=== PATIENT | female | born 1990 | race Caucasian/White ===

== ENCOUNTER 2021-05-02 16:15 | Outpatient (RCR) | payer OTHER, SELFPAY ==
--- NOTE | ~2021-05-02 | US_ITS ---
US OB limited w BPP DATE: 05/02/2021 17:37 INDICATION: decelerations in office TECHNIQUE: Real-time imaging and Doppler analysis COMPARISON: None FINDINGS: Live jane intrauterine gestation, fetus in vertex presentation, longitudinal lie with heart rate of 121 bpm. Anterior placenta. Amniotic fluid index measures 10.4 cm. BIOPHYSICAL PROFILE reported by library information technician: breathin out of 2 movement: 2 out of 2 tone: 2 out of 2 Amniotic fluid pocket: 2 out of 2 Total score: 8 out of 8 IMPRESSION: Normal biophysical profile score of 8 out of 8 Amniotic fluid index measures 10.4 cm Reviewed, dictated and finalized at Location A. Reviewed, dictated and finalized at location A. WHINA KURA KAUP[place]A MAORI
[2021-05-02 17:47] VITALS: BP 129/80; PULSE 89
== END 2021-06-10 13:23 | disposition home or self-care (01) ==
LOC: ANHOBOP 16:15
PROVIDERS: PCP Family Medicine; Visit Provider Obstetrics & Gynecology Gynecology
DX: O36.8330 Maternal care for abnormalities of the fetal heart rate or rhythm, third trimester, not applicable or unspecified (principal); Z3A.34 34 weeks gestation of pregnancy
CPT/HCPCS: 59025; 76815; 76819

== ENCOUNTER 2021-05-28 16:01 | Inpatient (IN) | payer OTHER, SELFPAY ==
[2021-05-28] VITALS (39 sets, daily range): BP systolic 104–149; BP diastolic 58–86; PULSE 65–109; TEMP 36.3–36.8; O2SAT 96–100; BMI 40.2
--- NOTE | 2021-05-28 16:45 | LDADM ---
This patient, Teresa Reed, was admitted to Labor/Delivery/Recovery 105 on 05/28/21 at 16:01. Plans for labor, pain management and were discussed with patient. Patient/family oriented to hospital policies and general routines including ID bracelet, bed and alarms, visiting hours, pain management, procedures, bathroom and other care routines, personal items, smoking policy, room service/diet and guest tray routines, infant security routines, and visiting hours. Patient/Family are encouraged to report perceived risks to care and to ask questions if they do not understand what they are told or what they should do. See OBIX for further documentation.
[2021-05-28 16:49] LABS: Basophils Percent Auto 0.4 % (0.2-1.2); Eosinophils Absolute Auto 0.1 K/mm3 (0-0.3); Eosinophils Percent Auto 1.1 % (0-4.4); Hematocrit 35.1 % (37.0-47.0); Hemoglobin 11.8 g/dL (12.0-15.0); Immature Granulocyte Absolute 0.11 K/mm3 (0.00-0.031); Immature Granulocyte Percent A 1.2 % (0-0.5); Lymphocytes Absolute Auto 1.57 K/mm3 (0.9-3.2); Lymphocytes Percent Auto 17.3 % (18.3-44.2); Mean Corpuscular HGB Conc 33.6 g/dl (32-36); Mean Corpuscular Hemoglobin 31.4 pg (26-34); Mean Corpuscular Volume 93.4 fl (80-100); Mean Platelet Volume 9.6 fl (7.4-10.4); Monocytes Absolute Auto 0.7 K/mm3 (0.1-0.6); Monocytes Percent Auto 7.4 % (2.6-8.5); Neutrophils Absolute Auto 6.6 K/mm3 (1.3-6.7); Neutrophils Percent Auto 72.6 % (45.5-73.1); Platelet Count Result 221 k/mm3 (150-375); Red Blood Count 3.76 M/mm3 (4.2-5.4); Red Cell Distribution Width 13.2 % (11.5-14.5); White Blood Count 9.1 K/mm3 (4.5-10.0)
--- NOTE | 2021-05-28 17:40 | WPDANESEPP ---
Anes - Eval Pre Procedure Procedure: labor epidural Date/Time: 05/28/21 17:40 Pre Op Diagnosis: SROM Patient Data Age: 30 Gender: F Height: 1.6 m Weight: 103 kg Last Vital Signs Temp 36.3 C L 05/28/21 17:20 Pulse 82 05/28/21 16:50 BP 129/72 05/28/21 16:50 Allergies Allergy/AdvReac Type Severity Reaction Status Date / Time No Known Allergies Allergy Verified 05/08/21 12:25 Home Medications Medication Instructions Recorded Confirmed Type PNV cmb#95-ferrous fumarate-FA 1 tablet PO DAILY 05/08/21 05/28/21 History [] aspirin 81 mg PO DAILY 05/08/21 05/08/21 History ferrous sulfate [Iron (ferrous 325 mg PO DAILY 05/08/21 05/08/21 History sulfate)] Laboratory Tests 05/28/21 05/28/21 05/28/21 16:43 16:43 16:43 WBC 9.1 K/mm3 K/mm3 (4.5-10.0) RBC 3.76 M/mm3 L M/mm3 (4.2-5.4) Hgb 11.8 g/dL L g/dL (12.0-15.0) Hct 35.1 % L % (37.0-47.0) MCV 93.4 fl fl (80-100) MCH 31.4 pg pg (26-34) MCHC 33.6 g/dl g/dl (32-36) RDW 13.2 % % (11.5-14.5) Plt Count 221 k/mm3 k/mm3 (150-375) MPV 9.6 fl fl (7.4-10.4) Immature Gran % (Auto) 1.2 % H % (0-0.5) Neut % (Auto) 72.6 % % (45.5-73.1) Lymph % (Auto) 17.3 % L % (18.3-44.2) [place]y % (Auto) 7.4 % % (2.6-8.5) Eos % (Auto) 1.1 % % (0-4.4) Baso % (Auto) 0.4 % % (0.2-1.2) Lymph # (Auto) 1.57 K/mm3 K/mm3 (0.9-3.2) Ripley # (Auto) 0.7 K/mm3 H K/mm3 (0.1-0.6) Eos # (Auto) 0.1 K/mm3 K/mm3 (0-0.3) Baso # (Auto) 0.0 K/mm3 K/mm3 (0.0-0.1) Abs Immat Gran (auto) 0.11 K/mm3 H K/mm3 (0.00-0.031) Absolute Neuts (auto) 6.6 K/mm3 K/mm3 (1.3-6.7) Absolute Nucleated RBC 0.0 K/mm3 K/mm3 (0.0-0.012) Nucleated RBC % 0.0 % % (0.0-0.2) RPR Pending Blood Type O Positive Antibody Screen Negative Patient hx anesthesia problems: none Family hx anesthesia problems: none Results Review: All pre-operative results and documents have been reviewed as part of the pre-operative evaluation. [facility], [facility] Past Medical History Medical History (Updated 05/28/21 @ 17:41 by Reema Mac CRNA) Anxiety and depression Morbid obesity Family History Family History Other No pertinent family history Social History Social History Smoking status: Never smoker Substance use: never Spiritual care concerns: No Exam Day of Procedure 05/28/21 17:40 Patient weight: morbidly obese Heart: regular rate and rhythm Lungs: normal air movement Airway: Mallampati scale class II Neurological: alert and oriented
[2021-05-28] MEDS: LACTATED RINGERS 1,000 ML 125 ML IV CONT ×2 (20:53→22:39)
[2021-05-28] MEDS: OXYTOCIN 30 UNITS/NS 500 ML 30 UNITS/500 ML BAG 6 UNITS IV CONT (20:53)
[2021-05-29] VITALS (113 sets, daily range): BP systolic 83–152; BP diastolic 48–95; PULSE 64–158; RESP 16–18; TEMP 36.5–37.3; O2SAT 95–100
--- NOTE | 2021-05-29 06:34 | WPDOBADMIT ---
Obstetrics - Admit Note Admission Note: record reviewed. No pertinent additions to the history and/or any subsequent changes in the physical findings that are not consistent with the expected course of the were found. Additions to the history and/or subsequent changes in the physical findings follow. None.Here in labor. C/P on my arrival
--- NOTE | 2021-05-29 06:35 | P.PCNOB_ITS ---
OB - Delivery Note Procedure Delivery date: 05/29/21 Procedure: Events: Other (COVID + in ) Induction method: None Delivery monitor: None Route of delivery: Laceration Description: Vaginal Delivery repair: vicryl (3-0 ) Specimen: No Quantitative Blood Loss (ml): 400 Anesthesia type: Epidural Disposition: Floor [place] Baby Date of : 05/29/21 Weeks of gestation at delivery: 38 Weight (pounds): 8 Weight (ounces): 2 presentation: vertex position: Right Occiput Anterior Placenta delivery description: Spontaneous Cord Vessel Description: 3 Vessels, Nuchal Cord and True Knot score one minute: 8 score five minutes: 9
--- NOTE | 2021-05-29 06:37 | PM.OBDSVD ---
DS: Admitting Diagnosis Discharge Date 05/30/21 Admitting Diagnosis IUP 38 05/08 in labor DS: Discharge Diagnosis Discharge Diagnosis (1) (normal spontaneous vaginal delivery): Code(s): O80 - Encounter for full-term uncomplicated delivery Status: Acute OB - DS: Summary OB Procedures : NST and Ultrasound OB Procedures Intrapartum: Spontaneous Vag Delivery OB Procedures: : None Peripartum Data Infant Delivery Method: Natural Vaginal Laceration Description: Vaginal - 2nd Degree complications: none Status at Discharge Functional status at discharge: independent ambulation Overall status at discharge: patient is progressing back to baseline Time Spent with Patient Time attestation: Total time spent providing and/or coordinating discharge services: DS: Data Data Completed and Pending Labs on day of discharge: Labs from last 24 hours 05/28/21 05/28/21 05/28/21 16:43 16:43 16:43 WBC 9.1 RBC 3.76 L Hgb 11.8 L Hct 35.1 L MCV 93.4 MCH 31.4 MCHC 33.6 RDW 13.2 Plt Count 221 MPV 9.6 Immature Gran % (Auto) 1.2 H Neut % (Auto) 72.6 Lymph % (Auto) 17.3 L Vance % (Auto) 7.4 Eos % (Auto) 1.1 Baso % (Auto) 0.4 Lymph # (Auto) 1.57 Vance # (Auto) 0.7 H Eos # (Auto) 0.1 Baso # (Auto) 0.0 Abs Immat Gran (auto) 0.11 H Absolute Neuts (auto) 6.6 Absolute Nucleated RBC 0.0 Nucleated RBC % 0.0 RPR Pending Blood Type O Positive Antibody Screen Negative Discharge Plan Discharge Attending physician on discharge: Camille Lerma Discharging Clinician: Camille Lerma Anticipated Discharge Date/Time: 05/30/21 07:55 Patient Disposition: Home, Self-Care Activity: may shower and pelvic rest Diet: regular Patient Instructions: Antibiotic Form Stand Alone Forms: General Discharge Information Follow-up/Referrals: Camille Lerma MD [Physician] - 6 Weeks Discharge Medications: Continued PNV cmb#95-ferrous fumarate-FA [] 28 mg iron- 800 mcg Tablet 1 tablet PO DAILY RF: 0 Discontinued aspirin 81 mg Tablet 81 mg PO DAILY RF: 0 ferrous sulfate [Iron (ferrous sulfate)] 325 mg (65 mg iron) Tablet 325 mg PO DAILY RF: 0 Date of admission: 05/28/21 16:01 Primary Care Provider: Nate,Ben Hines Admitting Provider: Camille Lerma Attending physician on admission: Camille Lerma Condition: Stable
[2021-05-29] MEDS: OXYTOCIN 30 UNITS/NS 500 ML 30 UNITS/500 ML BAG 125 UNITS IV CONT (07:00)
--- NOTE | 2021-05-29 09:00 | OBPPTRN ---
Patient transferred to post room # 285 via wheelchair. Support person present. Oriented to unit, room, information board, rooming in, admission packet and security measures. Patient verbalizes understanding. Baby and FOB up to the room with patient
[2021-05-29] MEDS: ONDANSETRON INJ 4 MG/2 ML VIAL IV PUSH (09:53)
[2021-05-29] MEDS: IBUPROFEN 600 MG TABLET PO ×2 (10:58→17:03)
[2021-05-29 13:00] LABS: Rapid Plasma Reagin Non-Reactive (NonReactive)
--- NOTE | 2021-05-29 14:33 | PC.NURSE ---
1115 -1200 Reported to RN this morning that mother was well independently. Introductions were made and consulted with patient to assess needs related to . Mother led conversation with her experience with feeding baby so far. Mother works well with her . Reviewed good handwashing when working with infant, breast, nipples and how to protect the nipples with a deep latch. Encouraged understanding the benefits of skin to skin, responding to feeding cues, frequencies of feeding 8-12 times in 24 hours (approximately 2-3 hours), duration of feedings, milk production, intake/output feeding sheet and signs of adequate intake. Discussed stimulating infant with skin to skin, hand expressing colostrum, touch and talking to to encourage eating at the breast. Reviewed positioning and alignment, supporting breast, off-centered (asymmetrical latch) and leading with the chin with big open wide gape. Infant latched optimally to the right breast in cross cradle position for 10 min. Infant detached. Nipple was not misshaped. Infant latched optimally to the left breast with football positioning with no discomfort to mother. Education given to mother of how to visualize suck/swallow ratios and drinking at the breast. was able to maintain latch without discomfort to mother. Nipple care reviewed with optimal latching, good positioning, comfort and healing with warm, wet washcloth to rinse breast and leave to air-dry, colostrum may be left on nipples to dry but have clean hands when touching the nipple/breast. Resources used to facilitate learning were used from the visual handout/ tool/mom and baby guide. Mother voiced understanding responding to feeding cues, may need to stimulate approximately 2-3 hours from the start of the last feeding with skin to skin, massage and hand expressed colostrum, and calling for assistance if the infant does not latch or there is discomfort . [id number] RN assisted mother with infant to left breast in cross cradle position. Reported to primary RN.
[2021-05-29] MEDS: DOCUSATE SODIUM 100 MG CAPSULE PO (17:03)
[2021-05-30 00:30] VITALS: BP 120/85; PULSE 110; RESP 20; TEMP 37.6; O2SAT 98
[2021-05-30 04:30] VITALS: BP 117/63; PULSE 102; RESP 18; TEMP 36.4; O2SAT 95
[2021-05-30] MEDS: IBUPROFEN 600 MG TABLET PO (04:53)
[2021-05-30 06:09] LABS: Hematocrit 31.3 % (37.0-47.0); Hemoglobin 10.4 g/dL (12.0-15.0)
[2021-05-30 07:50] VITALS: BP 113/64; PULSE 94; RESP 16; TEMP 36.7; O2SAT 99
--- NOTE | 2021-05-30 07:54 | PM.OBPNVD ---
OB - PN: Subj Subjective Date/time seen: 05/30/21 07:54 Patient comments: no complaints and pain well controlled baby status: doing well OB - PN: Obj Data Labs CBC & Chem 7: 05/30/21 05:42 Labs: Laboratory Results - last 24 hr 05/28/21 05/30/21 16:43 05:42 Hgb 10.4 L Hct 31.3 L RPR Non-reactive OB - PN A/P Plan day: 1 Plan: routine care, discharge home, follow up 6 weeks and other (unsure bc) Time Spent With Patient Time: Total time spent is greater than 50% in coordination of care (as documented) at patient's floor/unit and/or counseling patient: Exam : Bimanual exam- vagina & uterus: other (Uterus firm, nt @U)
--- NOTE | 2021-05-30 09:56 | WPDANLDPN2 ---
Anes-Prog Note L&D Date/Time: 05/30/21 09:56 Comfortable throughout: labor and delivery Neuraxial method: epidural Epidural/Spinal procedure site: tender (back pain rated 5) Neuro status: Neuro function grossly intact. Cardiovascular status: normal Respiratory status: normal Airway patency: baseline Mental status: baseline Post-Op hydration status: normal Vital Signs: Last Vital Signs Temp 98.1 F 05/30/21 07:50 Pulse 94 05/30/21 07:50 Resp 16 05/30/21 07:50 BP 113/64 05/30/21 07:50 Pulse Ox 99 05/30/21 07:50 Pain score (VAS): 5 I/O: Intake & Output 05/29/21 05/30/21 05/30/21 23:59 07:59 15:59 Intake Total 480 Balance 480 Post-procedural complaints: none Patient feedback: Patient satisfied with anesthetic care.
--- NOTE | 2021-05-30 11:58 | PC.NURSE ---
Patient viewed the discharge video Mother & Baby Care, The First Two Weeks . Patient was given the opportunity and encouraged to ask questions. Patient verbalized understanding of information shared and has been given the mother/baby guide for home reference.
--- NOTE | 2021-05-30 16:56 | PC.NURSE ---
[id number] Introductions were made and mother led the conversation with regards to her experience feeding her baby. Reminded parents to use good handwashing to prevent infection. has had appropriate feedings in the past 24 hours and meets the outcomes for weight, output and jaundice. Mother states she feels confident to continue effectively her infant at home. with an optimal latch without discomfort. Reviewed production of human milk, transition of milk, signs of adequate intake and engorgement prevention/relief and when to call the infant care provider using the mom and baby guide. Reviewed medications mother is taking with information provided by [facility], community resources and outpatient services as listed in the mom and baby guide/[facility] website. Reinforced watching for feeding cues with responsive feeding and how to stimulate infant to initiate feeding three hours from the start of the last feeding. Mother voiced understanding of information shared. Reported to primary RN.
[2021-05-31 09:43] VITALS: BP 117/70; PULSE 77; RESP 20; TEMP 37.1; O2SAT 99
== END 2021-05-30 13:55 | disposition home or self-care (01) | DRG 806 ==
LOC: ANHLDR 05-29 06:38 → ANHOB2 05-29 09:06
PROVIDERS: Admitting Provider Obstetrics & Gynecology Gynecology; PCP Family Medicine; Visit Provider Obstetrics & Gynecology Gynecology
DX: O69.1XX0 Labor and delivery complicated by cord around neck, with compression, not applicable or unspecified (principal); O71.4 Obstetric high vaginal laceration alone; Z37.0 Single live birth; Z3A.38 38 weeks gestation of pregnancy; O36.8330 Maternal care for abnormalities of the fetal heart rate or rhythm, third trimester, not applicable or unspecified; Z86.16 Personal history of COVID-19
CPT/HCPCS: 36415; 84112; 85014; 85018; 85025; 86592; 86850; 86900; 86901; A9270; J2405; J2590; J2795; J7120

== ENCOUNTER → 2023-02-01 08:22 | Outpatient (CLI) | payer OTHER, SELFPAY ==
--- NOTE | ~2023-02-01 | US_ITS ---
EXAMINATION: US OB transvaginal DATE: 02/01/2023 08:48 INDICATION: Viability. TECHNIQUE: Real-time transvaginal pelvic ultrasound was performed. COMPARISON: None. FINDINGS: The uterus measures 10.2 x 5.5 x 7.7 cm. There is an intrauterine gestational sac. A yolk sac is iden tified. The crown rump length measures 9 mm, which correlates with an estimated gestational ag e of 7 weeks and 0 day(s) (+/-) 4 day(s). heart motion is identified measuring 134 beats per mi nute (bpm) by M-mode Doppler. The right ovary measures 4.4 x 2.6 x 2.3 cm. The left ovary measures 2. 3 x 2.4 x 2.3 cm. There is no free fluid in the pelvis. IMPRESSION: 1. Single living intrauterine gestation with estimated date of delivery of 09/20/2023. Reviewed, dictated and finalized at location A. LABORER IMPRESSION: 1. Single living intrauterine gestation with estimated date of delivery of 09/01.
== END ==
PROVIDERS: PCP Obstetrics & Gynecology Gynecology; Visit Provider Obstetrics & Gynecology Gynecology
DX: O26.21 Pregnancy care for patient with recurrent pregnancy loss, first trimester (principal); Z3A.00 Weeks of gestation of pregnancy not specified
CPT/HCPCS: 76817

== ENCOUNTER 2023-05-03 09:45 | Outpatient (CLI) | payer OTHER, SELFPAY ==
--- NOTE | ~2023-05-03 | US_ITS ---
EXAMINATION: US OB /maternal detail DATE: 05/03/2023 10:22 INDICATION: Second trimester anatomic survey TECHNIQUE: Real-time ultrasound of the pelvis was performed. COMPARISON: None. FINDINGS: There is a single living fetus in variable presentation. The placenta is anterior/fundal and 12 cm fr om the internal cervical os. The measured cervical length is 3.5 cm. heart rate is 154 beats pe r minute (bpm). cardiac activity and movement are noted. The amniotic fluid index is sub jectively normal. The following anatomy was identified as normal: 4 chamber heart 3 vessel cord cord insertion kidneys urinary bladder stomach spine diaphragm ventricles cisterna magna cerebellum The following biometric data were obtained: Biparietal diameter (BPD): 4.9 cm; head circumference (HC): 18.0 cm; abdominal circumference (AC): 15 .3 cm; femur length (FL): 3.1 cm. These measurements are concordant. Estimated weight is 336 g +/- 50 g, which correlates with the 55th percentile when 09/20/2023 is used as estimated date of delivery. As single measurements, these parameters are each equal to the following estimated gestational ages w ith ranges of +/- 2 standard deviations: BPD: 20 weeks 5 days ( 19 weeks 0 days - 22 weeks 3 days). HC: 20 weeks 3 days ( 19 weeks 0 days - 21 weeks 6 days). AC: 20 weeks 4 days ( 18 weeks 3 days - 22 weeks 4 days). FL: 19 weeks 5 days ( 17 weeks 6 days - 21 weeks 3 days). estimated gestational age based solely on measurements from this exam is 20 weeks 3 days +/- 1 weeks 3 days. IMPRESSION: 1. Single living fetus in variable presentation. 2. Estimated weight is 336 g +/- 50 g, which correlates with the 55th percentile when 09/20/2023 is used as estimated date of delivery. Reviewed, dictated and finalized at location F. STRIAL RELATIONS OFFICER IMPRESSION: 1. Single living fetus in variable presentation. 2. Estimated weight is 336 g +/- 50 g, which correlates with the 55th per centile when 09/20/2023 is used as estimated date of delivery.
== END 2023-05-03 09:46 ==
LOC: MICIMG 09:46
PROVIDERS: PCP Advanced Practice Midwife; Visit Provider Advanced Practice Midwife
DX: Z36.9 Encounter for antenatal screening, unspecified (principal); Z3A.20 20 weeks gestation of pregnancy
CPT/HCPCS: 76805

== ENCOUNTER 2023-07-03 14:48 | Outpatient (CLI) | payer OTHER, SELFPAY ==
--- NOTE | ~2023-07-03 | US_ITS ---
US OB follow up DATE: 07/03/2023 15:24 INDICATION: Size greater than dates TECHNIQUE: Real-time imaging and Doppler analysis COMPARISON: 05/03/2023 obstetrical ultrasound FINDINGS: Live jane intrauterine gestation, fetus in longitudinal lie, vertex presentation with heart rate of 145 bpm. Anterofundal placenta. Amniotic fluid index measures 18.4 cm. (50 percentile ORTIZ: 9.4 cm; 95th percentile ORTIZ: 22.8 cm). movement was detected. Three-vessel umbilical cord. Subjectively normal amount of amniotic flui d. Biparietal diameter 7.71 cm; 31 weeks 0 days Head circumference 26.76 cm; 29 weeks 1 day Abdominal circumference: 27.34 cm; 31 weeks 3 days Femur length 5.64 cm image 129 weeks 4 days Composite age by matthew bircholithrolo based upon these third trimester measurements would be 30 weeks 2 d ays +/- 2 weeks 1 day with OSCAR of 09/09/2023, compared to 09/20/2023 by 02/01/2023 obstetrical ultrasound examination. Estimated weight is 1602 +/- 240 g. Femur length/BPD 73.11, within normal range of 71.0-87.0 Head circumference/abdominal circumference is 0.98, within normal range is 0.97-1.18 Femur length/abdominal circumference 20.63, within normal range of 20.00-24.00 Femur length/head circumference 21.08, within normal range of 19.23-21.37. IMPRESSION: Amniotic fluid index measures 18.4 cm, within normal limits Estimated weight is 1602 +/- 240 g Reviewed, dictated and finalized at Location A. Reviewed, dictated and finalized at location A.
== END 2023-07-03 14:49 ==
LOC: MICIMG 14:49
PROVIDERS: PCP Obstetrics & Gynecology Gynecology; Visit Provider Obstetrics & Gynecology Gynecology
DX: O36.63X0 Maternal care for excessive fetal growth, third trimester, not applicable or unspecified (principal); Z3A.00 Weeks of gestation of pregnancy not specified
CPT/HCPCS: 76816

== ENCOUNTER 2023-08-12 15:19 | Outpatient (CLI) | payer OTHER, SELFPAY ==
--- NOTE | ~2023-08-12 | US_ITS ---
LIMITED OBSTETRIC ULTRASOUND. Ordering provider: Samantha Brantley CNM History: . size greater than dates . Comparison: July 03, 2023 FINDINGS/impression: Single live fetus with movements. Ultrasound age is 36 weeks. OSCAR is September 09, 2023 Longitudinal lie. heart rate 156. Vertex presentation. Placenta anterior fundal. Distance from cervix is OOR. ORTIZ: 23.6 cm. 5th Percentile 8.1 cm.95 percentile areas 24.8 cm. Largest pocket is 7.7 cm. Estimated weight is 2789 gm. Reviewed, dictated and finalized at location A.
== END 2023-08-12 15:20 ==
LOC: MICIMG 15:19
PROVIDERS: PCP Advanced Practice Midwife; Visit Provider Advanced Practice Midwife
DX: O36.63X0 Maternal care for excessive fetal growth, third trimester, not applicable or unspecified (principal); Z3A.00 Weeks of gestation of pregnancy not specified
CPT/HCPCS: 76816

== ENCOUNTER 2023-09-11 17:16 | Inpatient (IN) | payer OTHER, SELFPAY ==
[2023-09-11] VITALS (85 sets, daily range): BP systolic 87–171; BP diastolic 48–138; PULSE 68–185; TEMP 36.6–37.7; O2SAT 98–100; BMI 39.0
--- NOTE | 2023-09-11 17:31 | WPDOBADMIT ---
Obstetrics - Admit Note Admission Note: record reviewed. No pertinent additions to the history and/or any subsequent changes in the physical findings that are not consistent with the expected course of the were found. Additions to the history and/or subsequent changes in the physical findings follow. Pt arrived after SROM in office.
[2023-09-11 17:51] LABS: Basophils Percent Auto 0.3 % (0.2-1.2); Eosinophils Percent Auto 0.3 % (0-4.4); Hematocrit 35.6 % (37.0-47.0); Hemoglobin 11.5 g/dL (12.0-15.0); Immature Granulocyte Absolute 0.14 K/mm3 (0.00-0.031); Immature Granulocyte Percent A 1.4 % (0-0.5); Lymphocytes Absolute Auto 1.59 K/mm3 (0.9-3.2); Lymphocytes Percent Auto 16.3 % (18.3-44.2); Mean Corpuscular HGB Conc 32.3 g/dl (32-36); Mean Corpuscular Hemoglobin 29.7 pg (26-34); Mean Platelet Volume 9.7 fl (7.4-10.4); Monocytes Absolute Auto 0.7 K/mm3 (0.1-0.6); Neutrophils Absolute Auto 7.3 K/mm3 (1.3-6.7); Neutrophils Percent Auto 74.7 % (45.5-73.1); Platelet Count Result 217 k/mm3 (150-375); Red Blood Count 3.87 M/mm3 (4.2-5.4); Red Cell Distribution Width 14.3 % (11.5-14.5); White Blood Count 9.8 K/mm3 (4.5-10.0)
[2023-09-11] MEDS: LACTATED RINGERS 1,000 ML 125 ML IV CONT (17:52)
--- NOTE | 2023-09-11 17:56 | LDADM ---
This patient, Teresa Reed, was admitted to Labor/Delivery/Recovery 107 on 09/11/23 at 17:16. Plans for labor, pain management and were discussed with patient. Patient/family oriented to hospital policies and general routines including ID bracelet, bed and alarms, visiting hours, pain management, procedures, bathroom and other care routines, personal items, smoking policy, room service/diet and guest tray routines, infant security routines, and visiting hours. Patient/Family are encouraged to report perceived risks to care and to ask questions if they do not understand what they are told or what they should do. See OBIX for further documentation.
--- NOTE | 2023-09-11 17:58 | WPDANESEPP ---
Anes - Eval Pre Procedure Procedure: Labor Epidural Date/Time: 09/11/23 17:58 Surgeon: Maria Guadalupe Preop Diagnosis: Labor Pain Pre Op Diagnosis: Labor Patient Data Age: 32 Gender: F Height: Weight: Last Vital Signs Pulse 86 09/11/23 17:46 BP 135/83 09/11/23 17:46 Allergies Allergy/AdvReac Type Severity Reaction Status Date / Time No Known Allergies Allergy Verified 09/11/23 17:53 Home Medications Medication Instructions Recorded Confirmed Type vit no.95-ferrous 1 tablet PO DAILY 05/08/21 09/11/23 History fumarate 28 mg-folic acid 800 mcg tablet () aspirin 81 mg tablet 81 mg PO DAILY 08/20/23 09/11/23 History ergocalciferol (vitamin D2) 1,250 1,250 mcg PO WEEKLY 08/20/23 09/11/23 History mcg (50,000 unit) capsule (Vitamin D2) magnesium 200 mg tablet 200 mg PO DAILY 08/20/23 09/11/23 History Laboratory Tests 09/11/23 17:32 WBC 9.8 K/mm3 (4.5-10.0) RBC 3.87 L M/mm3 (4.2-5.4) Hgb 11.5 L g/dL (12.0-15.0) Hct 35.6 L % (37.0-47.0) MCV 92.0 fl (80-100) MCH 29.7 pg (26-34) MCHC 32.3 g/dl (32-36) RDW 14.3 % (11.5-14.5) Plt Count 217 k/mm3 (150-375) MPV 9.7 fl (7.4-10.4) Immature Gran % (Auto) 1.4 H % (0-0.5) Neut % (Auto) 74.7 H % (45.5-73.1) Lymph % (Auto) 16.3 L % (18.3-44.2) [place] % (Auto) 7.0 % (2.6-8.5) Eos % (Auto) 0.3 % (0-4.4) Baso % (Auto) 0.3 % (0.2-1.2) Lymph # (Auto) 1.59 K/mm3 (0.9-3.2) [place] # (Auto) 0.7 H K/mm3 (0.1-0.6) Eos # (Auto) 0.0 K/mm3 (0-0.3) Baso # (Auto) 0.0 K/mm3 (0.0-0.1) Abs Immat Gran (auto) 0.14 H K/mm3 (0.00-0.031) Absolute Neuts (auto) 7.3 H K/mm3 (1.3-6.7) Absolute Nucleated RBC 0.000 K/mm3 (0.0-0.012) Nucleated RBC % 0.0 % (0.0-0.2) RPR Pending HIV 1&2 Ab/P24 Ag 4thGn Pending : gestational age (, OSCAR 09/18/23) Patient hx anesthesia problems: none Family hx anesthesia problems: none Results Review: All pre-operative results and documents have been reviewed as part of the pre-operative evaluation. [facility] Past Medical History Medical History Anxiety and depression Morbid obesity Family History Family History Other No pertinent family history Social History Social History Smoking status: Never smoker Substance use: never Spiritual care concerns: No Exam Day of Procedure 09/11/23 17:58 Patient weight: normal Heart: regular rate and rhythm Lungs: normal air movement Airway: Mallampati scale class II Neurological: alert and oriented
[2023-09-11 18:42] LABS: HIV 1/2 Ab P24 Ag Result Negative (Negative)
--- NOTE | 2023-09-11 21:11 | PM.OBPNLAB ---
Pain Control Date/time seen: 09/11/23 21:06 Pain control: tolerating well and epidural Pelvic Exam Dilation (cm): 9 Effacement (%): 100 station: 0 Amniotic membrane status: Ruptured Contractions Monitor mode: External Contraction frequency: 2 (1.5-3.5) Contraction duration: 80 (80-110) Contraction pattern: Regular Contraction phase: Contraction Contraction intensity: Strong/Firm Status status: Category ll Comments: Reassured by moderate variability and accelerations. Assessment and Plan Assessment: active labor Plan: continuous present management Comments: anticipate vaginal .
--- NOTE | 2023-09-11 21:24 | P.PCNOB_ITS ---
OB - Vaginal Delivery Note Procedure Delivery date: 09/11/23 Induction method: None Delivery monitor: External FHT and External Uterine Route of delivery: Episiotomy description: None Laceration Description: Superficial (superior to urethra. 1cm, very superficial. Hemostatic) Specimen: No Quantitative Blood Loss (ml): 225 Anesthesia type: Epidural Disposition: Floor Complications: No immediate complications Narrative: Teresa arrived to L&D after experiencing SROM in the office. She was found to be in active labor and received an epidural for analgesia. She progressed quickly to complete dilation and pushed with contractions. She pushed briefly and delivered the head over an intact perineum. There was excellent restitution and smooth delivery of the anterior and posterior shoulders. After the remainder of the was delivered, he was placed on the maternal abdomen and dried and stimulated by the nursery staff. After 1 minute of life, cord was doubly clamped and cut. Cord blood, cord gases, and cord segment were obtained. Placenta delivered spontaneously in the Schultze presentation and was noted to have marginal insertion. After the placenta was delivered the uterus was slightly boggy but firmed with massage. Vaginal bleeding was small but increased in intermittent short spurts. A bimanual exam was performed and to quarter-size clots were evacuated from the right lower portion of the uterus. After this, there was excellent hemostasis. 800 mcg of Cytotec was given rectally to prevent atony. 2 g of Ancef was ordered IV piggyback. The vagina and vulva were inspected. No repair was required. All delivery counts correct. Mother and baby skin to skin in the delivery room. [place] Baby Date of : 09/11/23 Time of : 22:28 Weeks of gestation at delivery: 39 Infant gender: Male Weight (pounds): 0 (unavailable at the time of this note) presentation: vertex position: Left Occiput Anterior Placenta delivery description: Spontaneous and Other (marginal cord insertion) Cord Vessel Description: 3 Vessels and Delayed Cord Clamping score one minute: 9 score five minutes: 9
--- NOTE | 2023-09-11 21:26 | PM.OBDSVD ---
DS: Admitting Diagnosis Discharge Date 09/13/23 Admitting Diagnosis 32 y.o. at 39 weeks SROM Active labor DS: Discharge Diagnosis Discharge Diagnosis (1) (normal spontaneous vaginal delivery): Code(s): O80 - Encounter for full-term uncomplicated delivery Status: Acute (2) Mother currently breastfeeds: Status: Acute OB - DS: Summary Hospital Course Hospital Course: Uncomplicated OB Procedures : Ultrasound OB Procedures Intrapartum: Spontaneous Vag Delivery OB Procedures: : None Peripartum Data Delivery Method: Natural Vaginal Laceration Description: Superficial Episiotomy description: None complications: none Status at Discharge Functional status at discharge: independent ambulation Overall status at discharge: patient is progressing back to baseline Time Spent with Patient Time attestation: Total time spent providing and/or coordinating discharge services: Exam Narrative: Alert and oriented. Mood is pleasant and cooperative. Perineum with minimal edema. Fundus firm and below umbilicus. Const: General: cooperative, healthy appearing, no acute distress and alert Orientation/consciousness: patient oriented x3 Limitations: no limitations Resp: Effort & Inspection: normal respiratory effort and able to speak in complete sentences Auscultation: clear to auscultation bilaterally Cardio: Rate: regular rate GI: Inspection: normal to inspection Auscultation: normal bowel sounds : General: Yes bladder normal to palpation External Female Exam: other (lochia WNL) Bimanual exam- vagina & uterus: bladder normal to palpation Other: Fundus firm and below U Skin: General skin exam: normal color and no rashes or lesions noted Neuro: General: patient oriented x3 and moves all extremities Cognition (Neuro): normal cognition Extrem: General: normal to inspection and no calf tenderness Psych: Appearance: grossly normal Mental Status: mental status grossly normal Affect: normal affect Thought process: Normal thought process present DS: Data Data Completed and Pending Labs on day of discharge: Labs from last 24 hours 09/11/23 17:32 WBC 9.8 RBC 3.87 L Hgb 11.5 L Hct 35.6 L MCV 92.0 MCH 29.7 MCHC 32.3 RDW 14.3 Plt Count 217 MPV 9.7 Immature Gran % (Auto) 1.4 H Neut % (Auto) 74.7 H Lymph % (Auto) 16.3 L [place] % (Auto) 7.0 Eos % (Auto) 0.3 Baso % (Auto) 0.3 Lymph # (Auto) 1.59 [place] # (Auto) 0.7 H Eos # (Auto) 0.0 Baso # (Auto) 0.0 Abs Immat Gran (auto) 0.14 H Absolute Neuts (auto) 7.3 H Absolute Nucleated RBC 0.000 Nucleated RBC % 0.0 RPR Pending HIV 1&2 Ab/P24 Ag 4thGn Negative Blood Type O Positive Antibody Screen Negative Discharge Plan Discharge Attending physician on discharge: Camille Lerma Discharging Clinician: Samantha Brantley Anticipated Discharge Date/Time: 09/13/23 10:28 Patient Disposition: Home, Self-Care Activity: may shower and pelvic rest Diet: regular Wound Care Instructions: follow printed instructions Discharge Instructions: Continue taking your vitamin and any other supplements as previously directed (Examples: Iron, Vitamin D). You may take Tylenol 1000mg over the counter every 6 hours as needed for pain. Do not exceed 4000mg of Tylenol daily. You may continue using tucks pads and dermoplast spray if needed for a few more days. Depression Notify provider for signs or symptoms. These may include- Feelings: Feeling anxious, angry, hopeless, guilt, or loss of interest/pleasure in activities you normally enjoy. Mood swings or panic attacks. General: Extreme fatigue, loss of your appetite, feeling restless. Crying excessively, irritability, insomnia Psychological: Lack of concentration, depression or fear, unwanted thoughts Weight: Significant gain or loss Safety: [facility]
[2023-09-11] MEDS: OXYTOCIN 30 UNITS/NS 500 ML 30 UNITS/500 ML BAG 999 UNITS IV CONT (22:30)
[2023-09-11] MEDS: OXYTOCIN 30 UNITS/NS 500 ML 30 UNITS/500 ML BAG 125 UNITS IV CONT (22:58)
[2023-09-11] MEDS: miSOPROStol 200 MCG TABLET 800 MCG (23:05)
[2023-09-11] MEDS: ceFAZolin 2 GM/D5W 50 ML 2 GM/50 ML BAG IVPB (23:54)
[2023-09-12] VITALS (9 sets, daily range): BP systolic 94–130; BP diastolic 54–79; PULSE 61–99; RESP 16–20; TEMP 36.6–37.1; O2SAT 97–100
--- NOTE | 2023-09-12 01:31 | OBPPTRN ---
Patient transferred to post room #284 via wheelchair. Support person present. Oriented to unit, room, information board, rooming in, admission packet and security measures. Patient verbalizes understanding.
[2023-09-12 06:01] LABS: Hematocrit 34.9 % (37.0-47.0); Hemoglobin 11.1 g/dL (12.0-15.0)
[2023-09-12] MEDS: IBUPROFEN 600 MG TABLET PO (06:37)
--- NOTE | 2023-09-12 07:56 | P.PNOB_ITS ---
OB - PN: Subj Subjective Date/time seen: 09/12/23 07:56 Patient comments: no complaints and pain well controlled baby status: doing well OB - PN: Obj Data Labs 09/12/23 04:28 Labs: Laboratory Results - last 24 hr 09/11/23 09/12/23 17:32 04:28 WBC 9.8 RBC 3.87 L Hgb 11.5 L 11.1 L Hct 35.6 L 34.9 L MCV 92.0 MCH 29.7 MCHC 32.3 RDW 14.3 Plt Count 217 MPV 9.7 Immature Gran % (Auto) 1.4 H Neut % (Auto) 74.7 H Lymph % (Auto) 16.3 L [place] % (Auto) 7.0 Eos % (Auto) 0.3 Baso % (Auto) 0.3 Lymph # (Auto) 1.59 [place] # (Auto) 0.7 H Eos # (Auto) 0.0 Baso # (Auto) 0.0 Abs Immat Gran (auto) 0.14 H Absolute Neuts (auto) 7.3 H Absolute Nucleated RBC 0.000 Nucleated RBC % 0.0 HIV 1&2 Ab/P24 Ag 4thGn Negative Blood Type O Positive Antibody Screen Negative OB - PN A/P Plan day: 1 Plan: routine care Time Spent With Patient Time: Total time spent is greater than 50% in coordination of care (as documented) at patient's floor/unit and/or counseling patient: Exam : Bimanual exam- vagina & uterus: other (Uterus firm, nt @U)
[2023-09-12] MEDS: MULTIVIT/MIN/PREN/FOL AC/IRON TABLET 1 TAB PO (08:58)
--- NOTE | 2023-09-12 09:00 | PC.NURSE ---
Consulted with patient to assess needs related to . Discussed with mother her successes, concerns and any questions she has. Encouraged understanding the benefits of skin to skin, responding to feeding cues, frequencies of feeding 8-12 times in 24 hours (approximately 2-3 hours), duration of feedings, milk production. has just been circumcised and is sleepy, mother will attempt to feed in the next hour. Encouraged mother to call out for assistance to wake , latching, and general feeding questions. Mother voiced understanding of the education shared, to call for assistance if the does not latch or if there is discomfort with . Reported to the Primary RN.
[2023-09-12 13:46] LABS: Rapid Plasma Reagin Non-Reactive (NonReactive)
--- NOTE | 2023-09-12 14:09 | WPDANLDPN2 ---
Anes-Prog Note L&D Date/Time: 09/12/23 14:09 Comfortable throughout: labor and delivery Neuraxial method: epidural Epidural/Spinal procedure site: clean & non-tender Neuro status: Neuro function grossly intact. Cardiovascular status: normal Respiratory status: normal Airway patency: baseline Mental status: baseline Post-Op hydration status: normal Vital Signs: Last Vital Signs Temp 36.7 C 09/12/23 11:22 Pulse 76 09/12/23 11:22 Resp 16 09/12/23 11:22 BP 116/58 L 09/12/23 11:22 Pulse Ox 97 09/12/23 11:22 O2 Del Method Room Air 09/12/23 08:00 Pain score (VAS): 1 I/O: Intake & Output 09/11/23 09/12/23 09/12/23 23:59 07:59 15:59 Intake Total 280 Output Total 250 Balance -250 280 Post-procedural complaints: none Patient feedback: Patient satisfied with anesthetic care.
--- NOTE | 2023-09-13 07:29 | P.PNOB_ITS ---
OB - PN: Subj Subjective Date/time seen: 09/13/23 07:15 Interval history: Doing well. Urinating without difficulty. Denies passing any large clots. Denies dizziness with ambulating. Tolerating po food and fluids. Bonding with . Patient comments: no complaints and pain well controlled baby status: nursing well feeding status: exclusively breast feeding OB - PN: Obj Data Labs 09/12/23 04:28 Labs: Laboratory Results - last 24 hr 09/11/23 17:32 RPR Non-reactive OB - PN A/P Assessment and Plan (1) (normal spontaneous vaginal delivery): Code(s): O80 - Encounter for full-term uncomplicated delivery Status: Acute (2) Mother currently breastfeeds: Status: Acute Plan day: 2 Plan: discharge home Time Spent With Patient Time: Total time spent is greater than 50% in coordination of care (as documented) at patient's floor/unit and/or counseling patient: Review of Systems Review of Systems: All systems reviewed & are unremarkable except as noted in HPI and below Exam Narrative: Alert and oriented. Mood is pleasant and cooperative. Perineum with minimal edema. Fundus firm and below umbilicus. Const: General: cooperative, healthy appearing, no acute distress and alert Orientation/consciousness: patient oriented x3 Limitations: no limitations Resp: Effort & Inspection: normal respiratory effort and able to speak in c omplete sentences Auscultation: clear to auscultation bilaterally Cardio: Rate: regular rate GI: Inspection: normal to inspection Auscultation: normal bowel sounds : General: Yes bladder normal to palpation External Female Exam: other (lochia WNL) Bimanual exam- vagina & uterus: bladder normal to palpation Other: Fundus firm and below U Skin: General skin exam: normal color and no rashes or lesions noted Neuro: General: patient oriented x3 and moves all extremities Cognition (Neuro): normal cognition Extrem: General: normal to inspection and no calf tenderness Psych: Appearance: grossly normal Mental Status: mental status grossly normal Affect: normal affect Thought process: Normal thought process present
[2023-09-13] MEDS: DOCUSATE SODIUM 100 MG CAPSULE PO (08:18)
[2023-09-13] MEDS: MULTIVIT/MIN/PREN/FOL AC/IRON TABLET 1 TAB PO (08:18)
[2023-09-13] MEDS: MAGNESIUM OXIDE 200 MG TABLET PO (08:18)
[2023-09-13] MEDS: LANOLIN (LANSINOH) 7.5 GM CREAM 1 APPLIC TOPICAL (08:18)
[2023-09-13 08:20] VITALS: BP 115/56; PULSE 67; RESP 16; TEMP 36.3; O2SAT 100
[2023-09-13] MEDS: BENZOCAINE 20% AER SPR (*SP) 56 GM CAN 1 SPRAY TOPICAL (08:20)
[2023-09-13] MEDS: WITCH HAZEL 40 PADS 1 PAD TOPICAL (08:20)
--- NOTE | 2023-09-13 09:25 | PC.NURSE ---
Consulted with mother concerning needs and she shared her ability to independently latch infant optimally without pain. Mother has some nipple tenderness and is using lanolin with good hand hygiene. Mother is feeding appropriately for growth of infant and understands stimulating to eat if needed. Infant has had appropriate feedings in the last 24 hours meets the outcomes for weight, output, and jaundice at this time. Reinforced understanding of milk production, transition of milk, signs of adequate intake, transition of stool, prevention/relief of engorgement, plugged ducts, mastitis, responsive watching for feeding cues, the different methods of stimulating infant to breastfeed 1-3 hours after the start of the last feeding, community resources, and when to call a provider using the resource of the feeding sheet along with the mom and baby guide. Mother voiced understanding of the information shared, is confident to continue effectively her infant at home, when to call for assistance, denies any additional assistance or education at this time. Reported to the Primary RN.
[2023-09-14 11:10] VITALS: BP 120/68; PULSE 80; RESP 18; TEMP 36.7; O2SAT 100
== END 2023-09-13 15:15 | disposition home or self-care (01) | DRG 807 ==
LOC: ANHLDR 23:21 → ANHOB2 09-12 01:49
PROVIDERS: Advanced Practice Midwife; Admitting Provider Obstetrics & Gynecology Gynecology; PCP Physician Assistant Medical; Visit Provider Obstetrics & Gynecology Gynecology
DX: O43.123 Velamentous insertion of umbilical cord, third trimester (principal); Z37.0 Single live birth; O70.0 First degree perineal laceration during delivery; Z3A.39 39 weeks gestation of pregnancy
CPT/HCPCS: 36415; 85014; 85018; 85025; 86592; 86703; 86850; 86900; 86901; A9270; G0432; J0690; J2590; J2795; J7120